=== PATIENT | female | born 1985 | race Caucasian/White ===

== ENCOUNTER 2019-10-22 10:26 | Inpatient (IN) | payer OTHER ==
[~2019-10-22] VITALS: Ht 160 cm; Wt 71.2 kg
[2019-10-22] MEDS ORDERED: RINGERS SOLUTION,LACTATED 1,000 ML IV ONE (10:35)
[2019-10-22] MEDS ORDERED: PREN-217 PO (10:41)
[2019-10-22] MEDS ORDERED: CITRIC ACID/SODIUM CITRATE 30 ML SOLUTION UDCUP PO ONE (10:45)
[2019-10-22] MEDS ORDERED: METOCLOPRAMIDE HCL 5 MG/ML 2 ML VIAL IVP ONE (10:45)
[2019-10-22 10:49] VITALS: BP 120/76
[2019-10-22] MEDS ORDERED: INFLUENZA VIRUS VACCINE QVS 2019-20 (3YR+)/PF 60 MCG/0.5 ML SYRINGE IM ONE (11:00)
[2019-10-22 11:11] LABS: BASOPHILS % (AUTO) 0.9 % (0.0-2.0); EOSINOPHILS % (AUTO) 0.3 % (1.0-6.0); HEMATOCRIT 29.5 % (36-46); HEMOGLOBIN 9.3 g/dL (12.0-16.0); LYMPHOCYTES # (AUTO) 2.9 K/uL (1.0-4.8); LYMPHOCYTES % (AUTO) 31.9 % (22.0-44.0); MEAN CORPUSCULAR HEMOGLOBIN 23.8 pg (26.0-34.0); MEAN CORPUSCULAR HGB CONC 31.5 G/dL (31.0-37.0); MEAN CORPUSCULAR VOLUME 76 fL (80-100); MONOCYTES # (AUTO) 0.5 K/uL (0.1-1.0); MONOCYTES % (AUTO) 5.7 % (2.0-9.0); NEUTROPHILS # (AUTO) 5.6 K/uL (1.8-7.7); NEUTROPHILS % (AUTO) 61.2 % (40.0-70.0); PLATELET COUNT (AUTO)-OB 272 K/uL (150-450); RED CELL DISTRIBUTION WIDTH 17.2 % (11.5-14.5)
[2019-10-22] MEDS ORDERED: TRANEXAMIC ACID 1,000 MG in DEXTROSE 5%-WATER 50 ML IV ONE (11:45)
[2019-10-22] MEDS ORDERED: MORPHINE SULFATE/PF 0.5 MG/ML 10 ML AMP ONE (12:09)
[2019-10-22] MEDS ORDERED: FentaNYL CITRATE-PF 100 MCG/2 ML VIAL ONE (12:09)
[2019-10-22] MEDS ORDERED: BUPIVACAINE HCL/DEX-WATER/PF 0.75% 2 ML AMP ONE (12:09)
[2019-10-22] MEDS ORDERED: ACETAMINOPHEN 1000 MG/ISO-OSM 100 ML IV ONE (12:10)
[2019-10-22] MEDS ORDERED: ONDANSETRON HCL 4 MG/2 ML VIAL IVP PRN ×2 (13:00→13:15)
[2019-10-22] MEDS ORDERED: DiphenhydrAMINE HCL 50 MG/ML VIAL IVP PRN ×2 (13:00→13:15)
[2019-10-22] MEDS ORDERED: NALBUPHINE HCL 10 MG/ML VIAL IVP PRN ×3 (13:00→13:15)
[2019-10-22] MEDS ORDERED: DEXAMETHASONE SOD PHOS 4 MG/ML VIAL IVP PRN (13:00)
[2019-10-22] MEDS ORDERED: FentaNYL CITRATE-PF 100 MCG/2 ML VIAL IVP PRN (13:15)
[2019-10-22] MEDS ORDERED: NALOXONE HCL 0.4 MG/ML VIAL IVP PRN (13:15)
[2019-10-22] MEDS ORDERED: GUM MASTIC/STORAX/MSAL/ALCOHOL LIQUID 0.67 ML VIAL TP ONE (13:29)
[2019-10-22] MEDS ORDERED: OXYTOCIN 30 UNITS/LACT RINGERS 500 ML IV ONE (13:41)
[2019-10-22] MEDS ORDERED: LANOLIN 7 GM OINTMENT TP PRN (13:45)
[2019-10-22] MEDS ORDERED: OxyCODONE HCL/ACETAMINOPHEN 5-325 MG TABLET PO PRN ×2 (13:45)
[2019-10-22] MEDS: MORPHINE SULFATE 10 MG/ML SYRINGE IVP PRN (18:38)
[2019-10-22] MEDS ORDERED: OXYGEN THERAPY IH SCH ×3 (20:00)
[2019-10-22] MEDS: RINGERS SOLUTION,LACTATED 1,000 ML IV SCH (20:02)
[2019-10-22] MEDS: ACETAMINOPHEN 1000 MG/ISO-OSM 100 ML IV SCH (20:41)
[2019-10-22] MEDS: MAGNESIUM HYDROXIDE SUSPENSION 30 ML UDCUP PO SCH (21:00)
[2019-10-23] MEDS: RINGERS SOLUTION,LACTATED 1,000 ML IV SCH (02:07)
[2019-10-23] MEDS: ACETAMINOPHEN 1000 MG/ISO-OSM 100 ML IV SCH (02:41)
[2019-10-23] MEDS ORDERED: 0.9% SODIUM CHLORIDE 10 ML VIAL IVP ONE (06:14)
[2019-10-23] MEDS ORDERED: OXYTOCIN 10 UNITS/ML VIAL IM ONE (06:14)
[2019-10-23] MEDS ORDERED: ONDANSETRON HCL 4 MG/2 ML VIAL IVP ONE (06:14)
[2019-10-23] MEDS ORDERED: EPHEDrine SULFATE 50 MG/ML VIAL IM ONE (06:14)
[2019-10-23 06:49] LABS: BASOPHILS % (AUTO) 0.5 % (0.0-2.0); EOSINOPHILS % (AUTO) 0.2 % (1.0-6.0); HEMATOCRIT 26.8 % (36-46); HEMOGLOBIN 8.3 g/dL (12.0-16.0); LYMPHOCYTES # (AUTO) 3.6 K/uL (1.0-4.8); LYMPHOCYTES % (AUTO) 21.3 % (22.0-44.0); MEAN CORPUSCULAR HEMOGLOBIN 23.5 pg (26.0-34.0); MEAN CORPUSCULAR HGB CONC 31.1 G/dL (31.0-37.0); MEAN CORPUSCULAR VOLUME 75 fL (80-100); MONOCYTES # (AUTO) 0.9 K/uL (0.1-1.0); MONOCYTES % (AUTO) 5.3 % (2.0-9.0); NEUTROPHILS # (AUTO) 12.4 K/uL (1.8-7.7); NEUTROPHILS % (AUTO) 72.7 % (40.0-70.0); PLATELET COUNT (AUTO)-OB 249 K/uL (150-450); RED BLOOD CELL COUNT(AUTO) 3.55 MIL/uL (4.00-5.20); RED CELL DISTRIBUTION WIDTH 16.7 % (11.5-14.5)
[2019-10-23] MEDS: MAGNESIUM HYDROXIDE SUSPENSION 30 ML UDCUP PO SCH ×2 (09:13→21:06)
[2019-10-23] MEDS: MORPHINE SULFATE 10 MG/ML SYRINGE IVP PRN (09:13)
[2019-10-23] MEDS: SOD FERRIC GLUC COMPLX/SUCROSE 125 MG in SODIUM CHLORIDE 0.9% 100 ML IV SCH (09:16)
[2019-10-23] MEDS ORDERED: OxyCODONE HCL/ACETAMINOPHEN 5-325 MG TABLET PO PRN ×2 (13:45)
[2019-10-24] MEDS: IBUPROFEN 800 MG TABLET PO PRN ×3 (00:10→14:19)
[2019-10-24] MEDS: MAGNESIUM HYDROXIDE SUSPENSION 30 ML UDCUP PO SCH (08:40)
[2019-10-24] MEDS: SOD FERRIC GLUC COMPLX/SUCROSE 125 MG in SODIUM CHLORIDE 0.9% 100 ML IV SCH (09:27)
[2019-10-24] MEDS ORDERED: IBUP-2070 PO (13:48)
[2019-10-24] MEDS ORDERED: DOCU-275 PO (13:48)
[2019-10-24] MEDS ORDERED: FERR-89 PO (13:49)
[2019-10-24] MEDS ORDERED: HYDR-4455 PO (13:50)
== END 2019-10-24 14:50 | disposition home or self-care (01) | DRG 788 ==
LOC: 4S 10:26 → PREOBSVTOIN 11-13 10:24
PROVIDERS: ADMIT Obstetrics & Gynecology; ATTEND Obstetrics & Gynecology
PROC: 10D00Z1 Extraction of Products of Conception, Low, Open Approach (ICD-10-PCS; principal; 2019-10-22)
PROC: 3E02340 Introduction of Influenza Vaccine into Muscle, Percutaneous Approach (ICD-10-PCS; 2019-10-23)
DX: O34.211 Maternal care for low transverse scar from previous cesarean delivery (principal); Z3A.39 39 weeks gestation of pregnancy; Z37.0 Single live birth; Z23 Encounter for immunization
CPT/HCPCS: 86850; 86900; 86901; 87081; 90686; J0131; J0690; J2270; J2274; J2405; J2590; J2916; J3010; J3490; J7050; J7060; J7120